=== PATIENT | female | born 2000 | race Two or more races ===

== ENCOUNTER 2023-10-31 09:14 | Outpatient (CLI) | payer OTHER | END 2023-10-31 09:15 | disposition home or self-care (01) | LOC: PRENATAL 09:14 | PROVIDERS: ATTEND Obstetrics & Gynecology Maternal & Fetal Medicine | DX: O26.843 Uterine size-date discrepancy, third trimester (principal); O36.8130 Decreased fetal movements, third trimester, not applicable or unspecified; Z3A.28 28 weeks gestation of pregnancy; Z14.8 Genetic carrier of other disease; O43.893 Other placental disorders, third trimester ==

== ENCOUNTER 2023-12-15 09:24 | Outpatient (CLI) | payer OTHER | END 2023-12-15 09:26 | disposition home or self-care (01) | LOC: PRENATAL 09:24 | PROVIDERS: ATTEND Obstetrics & Gynecology Maternal & Fetal Medicine | DX: O26.849 Uterine size-date discrepancy, unspecified trimester (principal); O36.8199 Decreased fetal movements, unspecified trimester, other fetus; Z14.8 Genetic carrier of other disease; O43.90 Unspecified placental disorder, unspecified trimester; Z3A.34 34 weeks gestation of pregnancy ==